=== PATIENT | female | born 1975 | race Two or more races ===

== ENCOUNTER 2016-07-02 18:57 | Emergency (ER) | payer MEDICAID ==
[~2016-07-02] VITALS: Ht 165.1 cm; Wt 81.2 kg
[2016-07-02] MEDS ORDERED: LEVOTHYROXINE88 MCG ORAL (19:35)
[2016-07-02 20:06] LABS: APPEARANCE,URINE CLEAR; KETONES,URINE NEGATIVE (NEGATIVE); LEUKOCYTE ESTERASE ,URINE NEGATIVE (NEGATIVE); NITRITE,URINE NEGATIVE (NEGATIVE); PH,URINE 5 (4.5-8.0); PROTEIN,URINE NEGATIVE (NEGATIVE); UROBILINOGEN,URINE NORMAL MG/DL (0.0-1.0)
[2016-07-02 20:22] LABS: RBC,URINE 0-2 /HPF (0 - 2)
[2016-07-02 20:23] LABS: BACTERIA,URINE MODERATE /HPF; SQUAMOUS EPITHELIAL CELL,UR FEW /LPF (NONE/OCC)
[2016-07-02] MEDS ORDERED: NITROFURANTOIN100 M2 ORAL (20:39)
[2016-07-02 20:47] VITALS: BP 115/82
[2016-07-02 20:48] VITALS: BP 115/82
--- NOTE | 2016-07-02 21:09 | Emergency Room Report ---
History of Present Illness General Chief Complaint: Female Urogenital Problems Source: Patient Present Illness HPI The patient is a 40-year-old female presenting with possible vaginal infection which being 2 weeks prior. The patient states that she felt a bump on the left side of the external vagina and was seen at [facility] and was not diagnosed with anything or placed on any medications. The patient denies any pain of the vagina, hematuria, vaginal discharge, flank pain, nausea, vomiting, fever, chills. The patient does admit to slight dysuria and increased urinary frequency. Allergies: Coded Allergies: No Known Allergies (Unverified , 07/02/16) Patient History Past Medical History: see triage record Pertinent Family History: none Last Menstrual Period: 11/29/15 Now: No Reviewed Nursing Documentation: PMH: Agreed, PSxH: Agreed Nursing Documentation-PMH Past Medical History: No History, Except For Review of Systems All Other Systems: negative except mentioned in HPI Physical Exam Vital Signs Date Time Temp Pulse Resp B/P Pulse Ox O2 Delivery O2 Flow Rate FiO2 07/02/16 19:30 99.3 91 14 119/84 99 Room Air Sp02 EP Interpretation: reviewed, normal General Appearance: no apparent distress, alert, GCS 15, non-toxic Head: normocephalic, atraumatic Eyes: bilateral eye PERRL, bilateral eye normal inspection ENT: hearing grossly normal, normal pharynx, no angioedema, normal voice Neck: full range of motion, supple/symm/no masses Respiratory: chest non-tender, lungs clear, normal breath sounds, speaking full sentences Cardiovascular #1: regular rate, rhythm, no edema Cardiovascular #2: 2+ carotid (R), 2+ carotid (L), 2+ radial (R), 2+ radial (L) , 2+ dorsalis pedis (R), 2+ dorsalis pedis (L) Gastrointestinal: normal bowel sounds, non tender, soft, non-distended, no guarding, no rebound Rectal: deferred Genitourinary: normal inspection, no CVA tenderness, ext genitalia/vag normal, other - Ext vagina normal. Normal palpation. No abscess. No rash. Non tender. No mass. Exam done with nurse Wang in room Musculoskeletal: back normal, gait/station normal, normal range of motion, non- tender Neurologic: alert, oriented x3, responsive, motor strength/tone normal, sensory intact, speech normal Psychiatric: judgement/insight normal, memory normal, mood/affect normal, no suicidal/homicidal ideation Reflexes: 3+ bicep (R), 3+ bicep (L), 3+ tricep (R), 3+ tricep (L), 3+ knee (R) , 3+ knee (L) Skin: normal color, no rash, warm/dry, well hydrated Lymphatic: no adenopathy Medical Decision Making PA Attestation Dr. Gonzalez is my supervising physician. Patient management was discussed with my supervising physician Diagnostic Impression: Primary Impression: Urinary tract infection ER Course The patient is a 40-year-old female presenting with possible vaginal infection which being 2 weeks prior. Differential diagnosis considered but not limited to: UTI, vaginitis, pyelonephritis, PE: Vitals WNL. NAD Abd is soft and non tender. No CVA tenderness. Ext vagina normal. Normal palpation. No abscess. No rash. Non tender. No mass. Exam done with nurse Wang in room There is moderately high bacteria in the urine. The patient will be discharged home with prescription for Macrobid. ER precautions are given Laboratory Tests Test 07/02/16 19:48 Urine Color Pale yellow Urine Appearance Clear Urine pH 5 (4.5-8.0) Urine Specific [place] 1.015 (1.005-1.035) Urine Protein Negative (NEGATIVE) Urine Glucose (UA) Negative (NEGATIVE) Urine Ketones Negative (NEGATIVE) Urine Occult Blood 1+ (NEGATIVE) H Urine Nitrite Negative (NEGATIVE) Urine Bilirubin Negative (NEGATIVE) Urine Urobilinogen Normal MG/DL (0.0-1.0) Urine Leukocyte Esterase Negative (NEGATIVE) Urine RBC 0-2 /HPF (0 - 2) Urine WBC 2-4 /HPF (0 - 2) Urine Squamous Epithelial Cells Few /LPF (NONE/OCC) Urine Bacteria Moderate /HPF (NONE) H Urine HCG, Qualitative Negative Lab Results Impression There is moderately high bacteria. No nitrites Last Vital Signs Date Time Temp Pulse Resp B/P Pulse Ox O2 Delivery O2 Flow Rate FiO2 07/02/16 20:48 99.3 89 14 115/82 100 Room Air Status: improved Disposition: HOME, SELF-CARE Condition: Improved Scripts Nitrofurantoin Monohyd/M-Cryst* (MACROBID 100 MG*) 100 Mg Capsule 100 MG ORAL EVERY 12 HOURS, #14 CAP Prov: GUILLE BOLAND 07/02/16 Patient Instructions: Urinary Tract Infection Additional Instructions: I discussed my findings with the patient. All questions and concerns have been answered. Treatment and medication compliance have been addressed. I advised the patient that they need to follow up with PMD in 3-5 days. Return to ED if symptoms worsen, new symptoms arise, or if needed for any reason. Patient verbalized understanding of discharge instructions. GUILLE BOLAND Jul 02, 2016 21:09
== END 2016-07-02 20:49 | disposition home or self-care (01) ==
LOC: EMR 19:53
DX: N39.0 Urinary tract infection, site not specified (principal); R30.0 Dysuria; R35.0 Frequency of micturition
CPT/HCPCS: 81003; 81025; 87086; 99283